=== PATIENT | male | born 1965 | race Caucasian/White ===

== ENCOUNTER 2022-11-10 12:09 | Inpatient (IN) | payer MEDICARE, OTHER ==
[~2022-11-10] VITALS: Ht 175.3 cm; Wt 132.0 kg
[2022-11-10] MEDS ORDERED: MORPHINE SULFATE INJ 2 MG/ML DISP.SYRIN IV ONE (12:30)
[2022-11-10] MEDS ORDERED: MORPHINE SULFATE INJ 4 MG/ML DISP.SYRIN ONE (12:36)
[2022-11-10 12:42] LABS: BASOPHILS # (AUTO) 0.1 K/uL (0.0-0.2); EOSINOPHILS # (AUTO) 0.1 K/uL (0.0-0.7); EOSINOPHILS % (AUTO) 2.4 % (0.0-6.0); HEMATOCRIT 42 % (39-51); HEMOGLOBIN 14.1 g/dL (13.5-17.5); LYMPHOCYTES # (AUTO) 0.4 K/uL (0.8-4.8); LYMPHOCYTES % (AUTO) 7.7 % (20.0-44.0); MEAN CORPUSCULAR HEMOGLOBIN 30 PG (26.0-33.0); MEAN CORPUSCULAR HGB CONC 34 g/dl (31.0-36.0); MEAN CORPUSCULAR VOLUME 90 fL (80-96); MONOCYTES # (AUTO) 0.6 K/uL (0.1-1.30); MONOCYTES % (AUTO) 11.2 % (2.0-12.0); NEUTROPHILS # (AUTO) 4.4 K/uL (1.8-8.9); NEUTROPHILS % (AUTO) 77.7 % (43.0-81.0); PLATELET COUNT (AUTO) 201 K/uL (150-450); RED BLOOD CELL COUNT(AUTO) 4.68 MIL/uL (4.5-6.0); RED CELL DISTRIBUTION WIDTH 15.3 % (11.5-15.0); WHITE BLOOD COUNT (AUTO) 5.6 K/uL (4.3-11.0)
[2022-11-10 12:48] LABS: CARBON DIOXIDE 27 mmol/L (21-32); CHLORIDE 103 mmol/L (98-107); GLUCOSE 231 mg/dL (74-106); POTASSIUM 3.7 mmol/L (3.5-5.1); SODIUM SERUM 138 mmol/L (136-145); UREA NITROGEN, BLOOD 8 mg/dL (7-18)
[2022-11-10] MEDS ORDERED: TADA5TAB2 PO (12:50)
[2022-11-10] MEDS ORDERED: METF-881 PO (12:50)
[2022-11-10] MEDS ORDERED: LISI40TA13 PO (12:50)
[2022-11-10] MEDS ORDERED: EMPA25TA PO (12:50)
[2022-11-10] MEDS ORDERED: BUPR-319 PO (12:50)
[2022-11-10] MEDS ORDERED: TERB250T52 PO (12:50)
[2022-11-10] MEDS ORDERED: INSU100I30 SQ (12:51)
[2022-11-10 12:53] LABS: ALANINE AMINOTRANSFERASE 22 U/L (12-78); ALBUMIN 3.5 g/dL (3.4-5.0); ALKALINE PHOSPHATASE 96 U/L (46-116); ASPARTATE AMINOTRANSFERASE 12 U/L (15-37); BILIRUBIN,DIRECT 0.1 mg/dL (0.0-0.2); BILIRUBIN,TOTAL 0.5 mg/dL (0.2-1.0); TOTAL PROTEIN, SERUM 6.9 g/dL (6.4-8.2)
[2022-11-10] MEDS ORDERED: IV NS 0.9% 250 ML IV ONE (13:34)
[2022-11-10] MEDS ORDERED: IOHEXOL-350 100 ML VIAL IV ONE (13:34)
[2022-11-10] MEDS ORDERED: CT SWABBABLE VALVE TRANS SET 1 EA INFUS.SET MC ONE (13:34)
[2022-11-10] MEDS ORDERED: ONDANSETRON HCL/PF 4 MG/2 ML VIAL IVP PRN (14:00)
[2022-11-10] MEDS ORDERED: ZOLPIDEM TARTRATE 5 MG TABLET PO PRN (14:00)
[2022-11-10] MEDS ORDERED: MAGNESIUM HYDROXIDE 30 ML UDC PO PRN (14:00)
[2022-11-10] MEDS ORDERED: DEXTROSE 50%-WATER 50 ML DISP.SYRIN IV PRN (14:00)
[2022-11-10] MEDS ORDERED: Z GUARD REMEDY 4 OZ OINT TP PRN (14:00)
[2022-11-10] MEDS ORDERED: MAG HYDROX/AL HYDROX/SIMETH 30 ML UDC PO PRN (14:00)
[2022-11-10] MEDS ORDERED: NITROGLYCERIN 0.4 MG/TAB BOTTLE SL PRN (14:00)
[2022-11-10] MEDS ORDERED: ACETAMINOPHEN 325 MG TABLET ONE (14:35)
[2022-11-10] MEDS: ACETAMINOPHEN 325 MG TABLET PO PRN ×2 (14:42→19:59)
[2022-11-10] MEDS: BLOOD SUGAR DIAGNOSTIC 1 EACH STRIP VI SCH ×2 (17:33→21:03)
[2022-11-10 18:58] VITALS: BP 155/94; TEMP 98.7; O2SAT 97
[2022-11-10 20:00] VITALS: BP 146/81; TEMP 97.5; O2SAT 97
[2022-11-11] VITALS (7 sets, daily range): BP systolic 129–157; BP diastolic 77–96; TEMP 97.9–98.7; O2SAT 94–97
[2022-11-11] MEDS: ACETAMINOPHEN 325 MG TABLET PO PRN ×3 (04:31→20:47)
[2022-11-11 05:49] LABS: BASOPHILS # (AUTO) 0.1 K/uL (0.0-0.2); BASOPHILS % (AUTO) 1.2 % (0.0-2.0); EOSINOPHILS # (AUTO) 0.1 K/uL (0.0-0.7); EOSINOPHILS % (AUTO) 2.9 % (0.0-6.0); HEMATOCRIT 43 % (39-51); HEMOGLOBIN 14.2 g/dL (13.5-17.5); LYMPHOCYTES # (AUTO) 1.4 K/uL (0.8-4.8); LYMPHOCYTES % (AUTO) 27.3 % (20.0-44.0); MEAN CORPUSCULAR HEMOGLOBIN 29 PG (26.0-33.0); MEAN CORPUSCULAR HGB CONC 33 g/dl (31.0-36.0); MEAN CORPUSCULAR VOLUME 89 fL (80-96); MONOCYTES % (AUTO) 20.6 % (2.0-12.0); NEUTROPHILS # (AUTO) 2.4 K/uL (1.8-8.9); PLATELET COUNT (AUTO) 209 K/uL (150-450); RED BLOOD CELL COUNT(AUTO) 4.85 MIL/uL (4.5-6.0); RED CELL DISTRIBUTION WIDTH 14.9 % (11.5-15.0)
[2022-11-11 06:15] LABS: CALCIUM, SERUM 8.9 mg/dL (8.5-10.1); CREATININE 0.7 mg/dL (0.6-1.3); MAGNESIUM 1.9 mg/dL (1.8-2.4); PHOSPHORUS 3.6 mg/dL (2.5-4.9); POTASSIUM 3.3 mmol/L (3.5-5.1)
[2022-11-11] MEDS: BLOOD SUGAR DIAGNOSTIC 1 EACH STRIP VI SCH ×4 (07:43→22:28)
[2022-11-11] MEDS: BUPROPION XL 150 MG TAB.ER.24 PO SCH (08:56)
[2022-11-11] MEDS: EMPAGLIFLOZIN 25 MG TABLET PO SCH (08:57)
[2022-11-11] MEDS: LISINOPRIL (20MG) 20 MG TABLET PO SCH (08:57)
[2022-11-11] MEDS: INSULIN GLARGINE, 100 UNIT/ML CARTRIDGE SQ SCH (09:03)
[2022-11-11] MEDS ORDERED: NITROGLYCERIN 0.4 MG/TAB BOTTLE SL PRN (09:30)
[2022-11-11] MEDS: ASPIRIN EC 81 MG TABLET.DR PO SCH (09:51)
[2022-11-11] MEDS: ATORVASTATIN 10 MG TABLET PO SCH ×2 (09:51→21:04)
[2022-11-11] MEDS ORDERED: POTASSIUM CHLORIDE 20 MEQ TAB.PRT.SR PO SCH (11:30)
[2022-11-11 12:48] LABS: ANISOCYTOSIS 1+; BASOPHILS % (MANUAL) 0 % (0.0-2.0); EOSINOPHILS % (MANUAL) 6 % (0-4); LYMPHOCYTES % (MANUAL) 24 % (16-48); MONOCYTES % (MANUAL) 18 % (0-11.0); NEUTROPHILS % (MANUAL) 52 (42-76); PLATELET ESTIMATE ADEQUATE
[2022-11-11] MEDS: *INSULIN REGULAR(HUMULIN R)HUM 100 UNIT/ML VIAL SQ PRN (22:29)
[2022-11-11] MEDS: BENZONATATE 100 MG CAPSULE PO PRN (22:35)
[2022-11-12] VITALS: BP 149/89; TEMP 98.8; O2SAT 93
[2022-11-12] MEDS: ACETAMINOPHEN 325 MG TABLET PO PRN (01:18)
[2022-11-12 04:00] VITALS: BP 140/89; TEMP 97.9; O2SAT 94
[2022-11-12 08:00] VITALS: BP 150/107; TEMP 97.9; O2SAT 95
[2022-11-12] MEDS: BLOOD SUGAR DIAGNOSTIC 1 EACH STRIP VI SCH ×4 (08:05→22:23)
[2022-11-12] MEDS: ASPIRIN EC 81 MG TABLET.DR PO SCH (08:19)
[2022-11-12] MEDS: EMPAGLIFLOZIN 25 MG TABLET PO SCH (08:20)
[2022-11-12] MEDS: BUPROPION XL 150 MG TAB.ER.24 PO SCH (08:20)
[2022-11-12] MEDS: LISINOPRIL (20MG) 20 MG TABLET PO SCH (08:20)
[2022-11-12] MEDS: INSULIN GLARGINE, 100 UNIT/ML CARTRIDGE SQ SCH (08:21)
[2022-11-12] MEDS: HYDROCODONE/APAP 5/325MG TABLET PO PRN ×3 (09:59→22:24)
[2022-11-12] MEDS: BENZONATATE 100 MG CAPSULE PO PRN ×2 (10:08→22:24)
[2022-11-12 12:00] VITALS: BP 148/83; TEMP 97.8; O2SAT 96
[2022-11-12] MEDS: INSULIN REGULAR, HUMAN 100 UNIT/ML 3 ML VIAL SQ PRN ×2 (12:07→17:09)
[2022-11-12] MEDS ORDERED: CT SWABBABLE VALVE TRANS SET 1 EA INFUS.SET MC ONE (15:25)
[2022-11-12] MEDS ORDERED: IV NS 0.9% 250 ML IV ONE (15:25)
[2022-11-12] MEDS ORDERED: METOPROLOL TARTRATE INJ 5 MG/5 ML AMPUL ONE (15:25)
[2022-11-12] MEDS ORDERED: IOHEXOL-350 100 ML VIAL IV ONE (15:25)
[2022-11-12] MEDS ORDERED: NITROGLYCERIN 0.4 MG/TAB BOTTLE ONE (15:26)
[2022-11-12] MEDS: METOPROLOL TARTRATE INJ 5 MG/5 ML AMPUL IVP PRN ×3 (15:28→15:38)
[2022-11-12] MEDS ORDERED: NITROGLYCERIN 0.4 MG/TAB BOTTLE SL ONE (15:30)
[2022-11-12 16:00] VITALS: BP 132/87; TEMP 97.8; O2SAT 97
[2022-11-12 20:00] VITALS: BP 152/98; TEMP 98.4; O2SAT 97
[2022-11-12] MEDS: ATORVASTATIN 10 MG TABLET PO SCH (22:03)
[2022-11-12] MEDS: *INSULIN REGULAR(HUMULIN R)HUM 100 UNIT/ML VIAL SQ PRN (22:23)
[2022-11-13] VITALS: BP 140/92; TEMP 98.2; O2SAT 95
[2022-11-13] MEDS ORDERED: POLYVINYL ALCOHOL 15 ML BOTTLE EACHEYE PRN
[2022-11-13 04:00] VITALS: BP 142/87; TEMP 98.4; O2SAT 95
[2022-11-13] MEDS: BLOOD SUGAR DIAGNOSTIC 1 EACH STRIP VI SCH ×2 (07:43→11:25)
[2022-11-13 08:00] VITALS: BP 147/97; TEMP 98.6; O2SAT 96
[2022-11-13 08:33] VITALS: BP 147/97
[2022-11-13] MEDS: ASPIRIN EC 81 MG TABLET.DR PO SCH (08:33)
[2022-11-13] MEDS: BUPROPION XL 150 MG TAB.ER.24 PO SCH (08:33)
[2022-11-13] MEDS: LISINOPRIL (20MG) 20 MG TABLET PO SCH (08:33)
[2022-11-13] MEDS: EMPAGLIFLOZIN 25 MG TABLET PO SCH (08:37)
[2022-11-13] MEDS: INSULIN GLARGINE, 100 UNIT/ML CARTRIDGE SQ SCH (08:38)
[2022-11-13] MEDS ORDERED: ATOR10TA PO (10:28)
[2022-11-13] MEDS ORDERED: BENZ-38 PO (10:28)
[2022-11-13] MEDS ORDERED: Aspirin Ec PO (10:28)
[2022-11-13] MEDS: INSULIN REGULAR, HUMAN 100 UNIT/ML 3 ML VIAL SQ PRN (11:28)
== END 2022-11-13 15:10 | disposition home or self-care (01) | DRG 311 ==
LOC: ER 12:12 → TELE1 16:34
PROVIDERS: ADMIT Internal Medicine; ATTEND Internal Medicine
DX: I20.0 Unstable angina (principal); Z68.41 Body mass index [BMI] 40.0-44.9, adult; E11.9 Type 2 diabetes mellitus without complications; I10 Essential (primary) hypertension; F32.9 Major depressive disorder, single episode, unspecified; Z86.711 Personal history of pulmonary embolism; Z79.4 Long term (current) use of insulin; Z79.84 Long term (current) use of oral hypoglycemic drugs; Z79.899 Other long term (current) drug therapy; E66.9 Obesity, unspecified
CPT/HCPCS: 36415; 71045-TC; 75574; 80048-TC; 80076-TC; 82962-TC; 83735-TC; 84100-TC; 84484-TC; 85025-TC; 93307-TC; G0378; J1815; J2270; J3490; J7050; Q9967